=== PATIENT | male | born 1975 | race African-American/Black ===

== ENCOUNTER 2019-12-21 23:38 | Inpatient (IN) | payer BC ==
[~2019-12-21] VITALS: Ht 170.2 cm; Wt 197.3 kg
--- NOTE | ~2019-12-21 | HC ---
[facility] [place] [address] CONSULTATION Name: WOODROW PATRICK JR Room #: 364-P ADM IN M.R.#: [id number] Admission: 12/22/19 Attend Phys: Alcides Corona MD Discharge: Date of : 71 Report #: [id number] THIS REPORT FOR: cc: [facility] - Clinic physician unknown [facility] - Clinic physician unknown Mark Watts MD ~ CC: Alcides PERDOMO unknown DATE OF SERVICE: 12/23/2019 REASON FOR CONSULTATION: Elevated creatinine. REASON FOR PRESENTATION: COVID-19 infection. HISTORY OF PRESENT ILLNESS: A 44-year-old with history of hypertension, who was extremely confused about his past medical history. Unfortunately, multiple family members have been affected by COVID-19. The patient went to [facility]. He tested himself for COVID-19 and received a call that he is positive in that he needs to come back to the hospital. On presentation to the Emergency Room, the patient reported that he has been having occasional cough. He denies shortness of breath, but he was found to be extremely hypoxemic with a pO2 of 70.9. The patient's creatinine on presentation was 2.6. The patient carries diagnosis of hypertension, not treated. He does not take any medications. He is not aware of any previous kidney problems. I was consulted to manage his chronic kidney disease. Currently, the patient is in an isolation room. He is maintained on IV fluid. He denies any active urinary symptoms. He denies nonsteroidal anti-inflammatory medications. We are waiting for his labs from [facility]. PAST MEDICAL HISTORY: Hypertension, morbid obesity. PAST SURGICAL HISTORY: Denies. SOCIAL HISTORY: No drug or alcohol abuse. FAMILY HISTORY: Currently, his mom and sister are being treated for COVID-19 infection. ALLERGIES: None. MEDICATIONS: He takes no medications. INPATIENT MEDICATIONS: 1. Azithromycin. 2. Ceftriaxone. [facility] [address] [address] CONSULTATION Name: WOODROW PATRICK JR Room #: 364-P [facility].#: [id number] Admission: 12/22/19 Attend Phys: Alcides Corona MD Discharge: Date of : 71 Report #: [id number] 3. Hydroxychloroquine. 4. Normal saline. 5. Pantoprazole. REVIEW OF SYSTEMS: GENERAL: Significant for weakness. CARDIOVASCULAR: No chest pain or palpitation. PULMONARY: Significant for cough and shortness of breath. GASTROINTESTINAL: nausea, vomiting. GENITOURINARY: No frequency or urgency. MUSCULOSKELETAL: Occasional myalgias. SKIN: No rash or ulcerations. PHYSICAL EXAMINATION: VITAL SIGNS: Blood pressure is 126/79. HEAD AND NECK: No jugular venous distention. CHEST: No crackles. Decreased air entry bilaterally with rhonchi. CARDIOVASCULAR: No rub detected. ABDOMEN: Soft. EXTREMITIES: Lower extremities, no edema. LABORATORY DATA: Laboratory values from today, chemistries pending. Yesterday's laboratory values revealed sodium of 142, potassium of 5.1, BUN 46, creatinine 2.6. Ultrasound of the kidneys revealed a simple left renal cyst. ASSESSMENT, IMPRESSION AND PLAN: 1. Chronic kidney disease. 2. COVID-19 infection. 3. Morbid obesity. 4. Workup is consistent with chronic kidney disease. We are waiting for the labs from [facility] to decide about the patient's baseline. Continue to avoid nephrotoxins. 5. Continue with gentle hydration. 6. Currently being treated for COVID-19. 7. Blood pressure seems to be reasonable without any medications and we will continue to monitor for now. 8. We will continue to follow. By: [id number] Mark Watts MD /nt
--- NOTE | ~2019-12-21 | EKG ---
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
[2019-12-21 23:56] VITALS: BP 131/81
[2019-12-22] VITALS (7 sets, daily range): BP systolic 97–140; BP diastolic 66–93
[2019-12-22 00:31] LABS: BE(vivo) 2.3 mmol/L (-2 to +3); HCO3 28.1 mmol/L (22.0-26.0); PO2 70.9 mmHg (80.0-100.0); pH 7.385 (7.360-7.450); sO2 93.9 % (92.0-98.0)
--- NOTE | 2019-12-22 01:04 | NUR ---
DAUGHTERMARY [phone] CALLED AND WANTED TEST RESULTS FOR HER FATHER THAT SHE DROPPED OFF. THIS RN NOTIFIED HER THAT TEST RESULTS ARE NOT BACK AT THIS TIME AND UNLESS SHE IS DPOA, THOSE WON'T BE SHARED WITHOUT PATIENT REQUEST/PERMISSION. DAUGHTER WANTED TO KNOW IF PATIENT WILL BE ADMITTED. INFORMATION PROVIDED THAT IT IS TOO SOON FOR THAT DETERMINATION AT THIS TIME. DAUGHTER DEMANDED THAT SHE BE NOTIFIED WHEN THIS DECISION HAS BEEN REACHED. THIS RN STATED THAT EITHER PATIENT OR STAFF WOULD LET HER KNOW WHEN DECISION FOR ADMISSION/DISCHARGE HAD BEEN MADE.
[2019-12-22 02:32] LABS: ABSOLUTE NEUTROPHILS 7.6 thou/uL (1.4-8.2); BASOPHILS 0.8 % (0.0-2.0); CREATININE 2.6 mg/dL (0.7-1.3); EOSINOPHILS 2.5 % (0.0-3.0); HEMATOCRIT 41.6 % (42.0-52.0); LYMPHOCYTES 16.9 % (24.0-44.0); MCH 27.4 pg (26.0-34.0); MCHC 31.2 g/dL (28.0-37.0); MCV 87.8 fL (80.0-100.0); MONOCYTES 4.6 % (1.0-8.0); PLATELET COUNT 304 thou/uL (150-400); POLYS 75.2 % (36.0-66.0); POTASSIUM 5.1 mmol/L (3.5-5.1); RBC 4.74 mil/uL (4.50-6.00); RDW 16.5 % (10.5-14.5); WBC 10.1 thou/uL (4.0-11.0)
--- NOTE | 2019-12-22 03:37 | NUR ---
BARREL LOADER, JAROD AT BEDSIDE. PATIENT CONFUSED AND VERY POOR HISTORIAN. JAROD WAS MITA DAUGHTER'S CONTACT INFO AND WILL BE CALLING DAUGHTER
[2019-12-22 04:35] LABS: ALBUMIN 2.3 g/dL (3.4-5.0); DIRECT BILIRUBIN 0.4 mg/dL (<0.1-0.2); TOTAL BILIRUBIN 0.6 mg/dL (<0.1-1.0); TOTAL PROTEIN 7.4 g/dL (6.4-8.2)
--- NOTE | 2019-12-22 05:27 | NUR ---
RECEIVED PATIENT FROM THE ED APPROXIMATELY AROUND 0420. ARRIVED ON ED BED W/ BELONGINGS IN THE BAG (PHONE/CLOTHES) AND SHIPYARD PAINTER HELPER ESCORT. PT WAS ABLE TO TRANSPORT SELF TO FLOOR BED BY SHIFTING OVER AND TOLERATED FAIRLY. PT WAS SOILED UPON ARRIVAL AND WAS CLEANSED BY STAFF IMMEDIATELY. PT HAD A SORE SPOT IDENTIFIED IN THE INNER L THIGH. PT VERBALIZED PAIN AT THAT AREA. PURPLE CREAM PROVIDED. PT COMMUNICATED DURING THIS ASSESSMENT THAT PT WOULD LIKE TO SPEAK WITH MOTHER WHENEVER POSSIBLE. PT REPORTED MOTHERS NUMBER TO RN AND RN FILED THIS NUMBER. THIS SHOULD BE FOLLOWED UP DURING DAY SHIFT PT WENT BACK TO SLEEP. PT'S VS WERE STABLE, PT WAS INSTRUCTED TO BREATHE THROUGH THE NOSE TO FACILIATE GREATER OXYGENATION. CARDIAC MONITORING IN PLACE, CALL LIGHT WITHIN REACH, 3/4 RAILS UP, BED CONTROL EXPLAINED, SAFE ENVIRONMENT PROVIDED. NO CONCERNS FROM PT AT THIS TIME. PT STATES BEING ABLE TO WALK AT HOME INDEPENDANTLY SO RN IS CONCERNED IF PT WILL TRY TO GET OUT OF BED ALONE. FALL RISK BAND PLACED, SOCKS ON, FALL PROTOCOL EXPLAINED. PT VERBALIZED UNDERSTANDING. WILL CONTINUE TO MONITOR AND PASS ON TO DAY SHIFT. APPLE JUICE PROVIDED WELL H20 HYDRATION.
--- NOTE | 2019-12-22 10:42 | NUR ---
ASSESSMENT: CM REVIEWED CHART AND ATTEMPTED TO CONTACT PT IN HIS ROOM MULTIPLE TIMES BUT NO ANSWER. CM REACHED OUT TO PATIENTS MOTHER WHOM HE LIVES WITH AND LEFT VM. CM SPOKE WITH PATIENTS DAUGHTER BRAYAN WHO STATES PT LIVES WITH HIS MOTHER AND SISTER IN A HOUSE. PT HAS NO STEPS HE HAS TO USE. PER REPORT PATIENT GOT TESTED FOR COVID 19 AND THEY CONTACTED HIM THAT HIS RESULTS WERE POSITIVE AND HE CAME TO [facility]. PER REPORT PTS SISTER IS ALSO IN THE HOSPITAL FOR COVID RULE OUT. PT IS NORMALLY INDEPENDENT WITH ADLS AND AMBULATION AND HAS NO DME. PT IS CURRENTLY ON 6 L OXYGEN BUT ACCORDING TO DAUGHTER PT DOES NOT HAVE OXYGEN AT HOME AND HAS NO CPAP THAT SHE IS AWARE OF. BRAYAN REPORTS PT IS NORMALLY ALERT AND ORIENTED X4. SHE REPORTS PT HAS BEEN HAVING AN ISSUE WITH INCONTINENCE FOR ABOUT A WEEK SINCE HE HAS NOT BEEN FEELING WELL. CM WILL CONTINUE TO FOLLOW TO ASSIST NEEDED.
[2019-12-22 12:58] LABS: URINE BILIRUBIN NEGATIVE (Negative); URINE BLOOD 2+ (Negative); URINE CLARITY CLEAR; URINE COLOR YELLOW; URINE GLUCOSE-RANDOM* NEGATIVE (Negative); URINE KETONES NEGATIVE (Negative); URINE LEUKOCYTES NEGATIVE (Negative); URINE NITRITE NEGATIVE (Negative); URINE PROTEIN (DIPSTICK) 2+ (Negative); URINE SPECIFIC GRAVITY 1.015 (1.005-1.035)
[2019-12-22 13:16] LABS: CASTS None Seen /LPF (None Seen); SQUAMOUS None Seen /LPF (0-3)
[2019-12-22 13:17] LABS: BACTERIA 1-9 Few /HPF (None Seen); CRYSTALS None Seen /LPF (None Seen); URINE RBC 0-2 Rare /HPF (0-2); URINE WBC 6-15 Few /HPF (0-5)
--- NOTE | 2019-12-22 19:49 | NUR ---
PT RESTING IN BED, LETHARGIC. TV ON. O2 6L INTACT, IVF INTACT. PT ASSISTED WITH REPOSITIONING IN BED. GOOD EYE CONTACT. BLUNTED AFFECT, MINIMAL SPEECH. SLOW IN FINDING WORDS TO STATE WHAT SNACK HE WANTED. INITIALLY VERBALLY RESISTIVE TO HEPARIN INJECTION AFTER EXPLAINATION PROVIDED, PT COMPLIANT. PT IS OBESE, LUNGS CRACKLES IN BASES, SCDS ON.
--- NOTE | 2019-12-22 21:30 | NUR ---
PT FEEDING SELF ICE CREAM, ANSWERING QUESTIONS IN A FASTER TIME FRAME. PT RESISTIVE TO TAKING HYDROCHLOROQUINE, STATED TASTES BAD. AFTER EDUCATION PT COMPLIED. PT REPOSITIONING SELF IN BED. NOT OBSERVED COUGHING.
--- NOTE | 2019-12-22 21:37 | NUR ---
PTS DAUGHTER CALLED ASKING QUESTIONS RE ELEVATED BUN AND CREATNINE. DAUGHTER INFORMED OF RENAL DR CONSULT.
--- NOTE | 2019-12-22 23:00 | NUR ---
PT O2 SAT WHEN ASLEEP 85 TO 88. PT REPOSITIONED TO TOP OF BED AND HOB ELEVATED O2 SAT 91 WHEN ASLEEP. PT NOT PRESENTING LABORED BREATHING.
--- NOTE | 2019-12-23 00:32 | NUR ---
PT IMPULSIVELY GOT OOB TO USE URINAL. PT REDIRECTED TO WAIT FOR NURSE AND COMPLIED. PT USED URINAL AND BSC. PT NEEDS BARIATRIC BSC AND OBTAINED. TALKED WITH ANALYTICAL CHEMISTRY TEACHER AND ORDERED BARIATRIC CHAIR. ALARM ON.
--- NOTE | 2019-12-23 01:03 | NUR ---
PT CONTINUES TO TAKE OFF O2 AND DESAT TO 72. TAPED TO CHEEKS.
--- NOTE | 2019-12-23 01:26 | NUR ---
PT ATTEMPTED TO GET OOB. WHEN ASKED WHAT HE WAS TRYING TO DO. HE WAS NOT ABLE TO RESPOND. PT RETURNED TO RESTING. ALARM ON.
[2019-12-23 03:49] VITALS: BP 126/79
--- NOTE | 2019-12-23 05:12 | NUR ---
pt refused am lab draw. will retry later in am.
--- NOTE | 2019-12-23 07:56 | EKG ---
[facility] [place] [address] ELECTROCARDIOGRAM REPORT Name: CELINAWOODROW Room #: 364-P ADM IN M.R.#: [id number] Admission: 12/22/19 Attend Phys: Alcides Corona MD Discharge: Date of : 71 Report #: [id number] THIS REPORT FOR: cc: [facility] - Clinic physician unknown [facility] - Clinic physician unknown Vik Hess MD [facility] ~ THIS REPORT FOR: //name// [facility] ED Test Date: 2019-12-22 Test Time: 01:00:35 Pat Name: WOODROW PATRICK Department: Room: 364 P Gender: M Vendette: ILDA : 1975 Requested By: Attila Donald Order Number: [id number] MD: Vik Hess Measurements Intervals [place] Rate: 87 P: 35 IN: 155 QRS: 21 QRSD: 105 T: 33 QT: 395 QTc: 476 Interpretive Statements Sinus rhythm Borderline prolonged QT interval No previous ECG available for comparison Electronically Signed On 12-23-2019 7:55:19 CDT by Vik Hess [email or web address] <ELECTRONICALLY SIGNED> By: Vik Hess MD, FAC 12/23/19 0755 010 010 Vik Hess MD, [facility] /EPI
--- NOTE | 2019-12-23 07:59 | EKG ---
[facility] [place] [address] ELECTROCARDIOGRAM REPORT Name: CELINAWOODROW Room #: 364-P ADM IN M.R.#: [id number] Admission: 12/22/19 Attend Phys: Alcides Corona MD Discharge: Date of : 71 Report #: [id number] THIS REPORT FOR: cc: [facility] - Clinic physician unknown [facility] - Clinic physician unknown Vik Hess MD [facility] ~ THIS REPORT FOR: //name// [facility] Test Date: 2019-12-22 Test Time: 17:47:55 Pat Name: WOODROW PATRICK Department: Room: 364 P Gender: M Record Changer Tester: Maria Elena LAU : 1975 Requested By: Alcides Corona Order Number: [id number] MD: Vik Hess Measurements Intervals [place] Rate: 79 P: 34 SD: 161 QRS: 27 QRSD: 105 T: 30 QT: 413 QTc: 474 Interpretive Statements Sinus rhythm Normal tracing No previous ECG available for comparison Electronically Signed On 12-23-2019 7:58:08 CDT by Vik Hess [email or web address] <ELECTRONICALLY SIGNED> By: Vik Hess MD, [facility] 12/23/19 0758 46 46 Vik Hess MD, [facility] /EPI
[2019-12-23 08:00] VITALS: BP 131/68
[2019-12-23 09:47] LABS: CALCIUM 8.7 mg/dL (8.5-10.1); PHOSPHORUS 3.9 mg/dL (2.5-4.9); POTASSIUM 5.2 mmol/L (3.5-5.1)
--- NOTE | 2019-12-23 10:10 | NUR ---
ON-GOING ASSESSMENT: CM WAS NOTIFIED BY UR RN THAT INSURANCE CONTACTED THEM AND PT IS OUT OF NETWORK WITH NO OUT OF NETWORK BENEFITS AND REQUEST WE TRANSFER THE PATIENT TO AN IN NETWORK FACILITY ONCE MEDICALLY STABLE TO DO SO. CM REACHED OUT TO ATTENDING DR. BANKS WHO STATES PATIENT IS STABLE TO TRANSFER TO ANOTHER [facility] AND NEEDS TO REMAIN INPATIENT. CM SPOKE WITH PTS BEDSIDE RN WHO WENT IN TO TALK WITH PATIENT AND CONTACTED THIS CM BY PHONE. PT IS WILLING TO TRANSFER AND WANTS TO TRY [facility] THAT IS WHERE HE ORIGINALLY TESTED FOR COVID. CM REACHED OUT TO [facility] AND SPOKE WITH TRANSFER NURSE WHO STATES TO FAX CLINICAL TO THEM AT [phone] AND THEY WILL GET IT TO THEIR UR TEAM TO REVIEW. CM DID DISCUSS THAT PATIENT IS COVID POSITIVE. SHE STATES THEY WILL REVIEW AND CONTACT CM BACK. CM ALSO RECEIVED A CALL FROM PATIENTS SON WOODROW WHO LIVES OUT OF STATE AND CM SPOKE WITH PT WHO GAVE PERMISSION FOR CM TO TALK TO HIM ([phone]) AND NOTIFIED HIM OF THE SITUATION AND NEED FOR TRANSFER. CM WILL CONTINUE TO ASSIST NEEDED.
--- NOTE | 2019-12-23 13:33 | NUR ---
PATIENT HAS RESTED IN ROOM THROUGH THE DAY. HE HAS LARGELY KEPT HIS OXYGEN ON ALTHOUGH HE NEEDS TO BE ENCOURAGED STRONGLY. HE IS ALERT ORIENTED TO X3. HE IS MORE AWAKE TODAY. CALLED FAMILY ON THE PHONE AN SPOKE TO THEM . HE MAY BE TRANSFERED TODAY TO [facility]. WILL CONT WITH PLAN OF CARE.
[2019-12-23 17:30] VITALS: BP 109/56
[2019-12-23 20:00] VITALS: BP 114/56
[2019-12-24 03:11] VITALS: BP 134/92
--- NOTE | 2019-12-24 04:09 | NUR ---
ASSESSMEN: PT REMAIN ALERT AND ORIENT TIMES TWO. DOES NOT SEEM TO BE AWARE OF SITUATION. PT HAS A FLAT AFFECT AND IS SLOW TO REPOND TO SIMPLE QUESTIONS. DOES NOT COMPLY AT TIMES TO POC. HAVE TO CONSTANTLY EXPLAIN WHAT THE POC IS FOR HIM AND WHAT DIFFERENT MEDS ARE FOR. UP TO BR WITH STEADY GAIT. DID HAVE TWO MEDIUM SIZE OF LOOSE STOOLS. SR PER MONITOR. VSS, AFEBRILE. DOES DESATS IN MID 80'S WHILE ASLEEP. DENIES PAIN AT THIS IIME. TALKED TO FAMILY ON THE PHONE. PT REFUSES TO USE THE BEDSIDE COMMODE. TOLEARTING PO INTAKE. DID NOT EAT MUCH OFF DINNER AND LUNCH TRAY. DID NOT WANT THE TRAY AND THEY WERE DISCARDED. PT DID HAVE A NON-PRODUCTIVE COUGH. DOES NO COVER HIS COUGH. PT WAS GIVEN THE OPTION TO COVER COUGH OR A MASK WOULD PLACE ON HIM. RAC IV INTACT, FLUSES WELL. SLOW PROGRESS TOWARDS DC GOALS. NO WORD FROM [facility] THIS SHIFT. WILL CONTINUE TO MONITOR.
--- NOTE | 2019-12-24 07:15 | NUR ---
Nutrition: Assess due to BMI > 40. BMI 68.1 kg/m2, extreme class III obesity. Admit for positive COVID 19, MARCO A, hypoxia. PMH includes morbid obesity, HTN. Pt is already on therapeutic diet of heart healthy to limit Na. Not yet eating much per 12/22 intake records given acuity of illness. Ate 30% of 2 meals, refused other. Noted to be A&O x2 per latest RN note and slow to respond to simple questions. Awaiting transfer to different hospital as pt out of network. Available if pt has questions regarding diet. Continue current diet. Anticipate po intake to resume to adequate levels upon improvement in symptoms. Low nutrition risk otherwise.
[2019-12-24 09:24] VITALS: BP 122/77
[2019-12-24 09:39] LABS: CALCIUM 8.5 mg/dL (8.5-10.1); POTASSIUM 4.8 mmol/L (3.5-5.1)
--- NOTE | 2019-12-24 10:21 | NUR ---
ON-GOING ASSESSMENT: CAROLA WAS NOTIFIED BY LORRAINE THAT ATTENDING IS STATING PATIENT WILL DISCHARGE TODAY AND NO NEEDS TO TRANSFER TO [place]. CAROLA SPOKE WITH PATIENTS DAUGHTER BRAYAN TO UPDATE HER AND SHE STATES SHE WANTS TO CLEAN HIS HOME FIRST SINCE HE WAS POSTIIVE AND ASKING IF PATIENT CAN STAY AN ADDITIONAL DAY. CAROLA NOTIFIED HER INSURANCE HAS ONLY APPROVED 2 DAYS AND SO PT WILL NEED TO DISCHARGE TODAY BUT CAN LEAVE IN AFTERNOON TO ALLOW HER TIME TO CLEAN. CAROLA SPOKE WITH PT AND HE REPORTS NO FURTHER QUESTIONS.
--- NOTE | 2019-12-24 10:24 | NUR ---
DISCHARGE NOTE: SW reviewed chart and spoke with nursing and attending physician. Pt is medically stable to discharge home today. Pt is off O2. No further need to transfer to [facility]. LORRAINE spoke with transfer nurse, Joshua, at [facility] to provide update and notify of pt not needing to transfer. SW spoke with pt via phone to discuss discharge plan. Pt is aware and agreeable. Pt states his dtr will provide transportation home later today. No discharge needs identified at this time. LORRAINE discussed discharge with pt's nurse. Pt will be discharged home with COVID-19 education. Pt's dtr to contact pt's nurse regarding discharge time. No further SW needs identified at this time, but is available to assist should needs arise.
[2019-12-24 15:39] VITALS: BP 128/72
[2019-12-24 18:34] VITALS: BP 128/72
== END 2019-12-24 18:59 | disposition home or self-care (01) | DRG 177 ==
LOC: ER 23:38 → 3W 12-22 03:09 → EROBS 12-22 03:09 → 3W 12-22 04:13
PROVIDERS: Emergency Medicine; Hospitalist; Nurse Practitioner Family; ADMIT Hospitalist
DX: U07.1 COVID-19 (principal); J96.01 Acute respiratory failure with hypoxia; G93.41 Metabolic encephalopathy; N17.9 Acute kidney failure, unspecified; Z68.44 Body mass index [BMI] 60.0-69.9, adult; E66.01 Morbid (severe) obesity due to excess calories; N18.9 Chronic kidney disease, unspecified; E87.5 Hyperkalemia; I12.9 Hypertensive chronic kidney disease with stage 1 through stage 4 chronic kidney disease, or unspecified chronic kidney disease; Z79.899 Other long term (current) drug therapy
CPT/HCPCS: 10879